=== PATIENT | female | born 1995 | race Caucasian/White ===

== ENCOUNTER 2023-07-16 09:15 | Emergency (ER) | payer OTHER, SELFPAY ==
[2023-07-16 09:43] VITALS: BP 132/71; PULSE 85; RESP 16; TEMP 36.6; O2SAT 100
--- NOTE | 2023-07-16 09:50 | ED.GENADULT ---
HPI - General Adult General Chief complaint: Upper Respiratory Infection Stated complaint: congestion,swelling on rt side of face Time Seen by Provider: 07/16/23 09:50 Source: patient, RN notes reviewed and old records reviewed Mode of arrival: ambulatory Limitations: no limitations History of Present Illness HPI narrative: 28-year-old female presents to the [facility] with complaints of congestion and swelling to the area in front of her ear, swollen, painful. Has had congestion for the last 3-4 days. Patient is 9 weeks . States that she has been using Flonase with approval from her OB. States that she has been using Claritin daily. area is tender palpation. Movable, mildly swollen. No otitis media noted on exam. Tender area since waking up this morning. Onset (ago): day(s) (1) Related Data Home Medications Medication Instructions Recorded Confirmed No Home Medications 07/16/23 07/16/23 Allergies Allergy/AdvReac Type Severity Reaction Status Date / Time cefaclor AdvReac Intermediate Gastrointestinal Verified 07/16/23 10:05 Upset sulfamethoxazole AdvReac Mild Rash Verified 07/16/23 10:06 [From Bactrim] trimethoprim [From Bactrim] AdvReac Mild Rash Verified 07/16/23 10:06 Review of Systems Review of Systems: All systems reviewed & are unremarkable except as noted in HPI and below Constitutional: Constitutional: Reports no additional constitutional complaints Eyes: Eyes: Reports no additional eye complaints ENT: Reports as per HPI Cardiovascular: Cardiovascular: Reports no additional cardiovascular complaints, Denies chest pain and Denies dyspnea Respiratory: Respiratory: Reports no additional respiratory complaints, Denies chest congestion, Denies cough and Denies dyspnea Gastrointestinal: Gastrointestinal: Reports no additional gastrointestinal complaints, Denies abdominal pain, Denies nausea and Denies vomiting Musculoskeletal: Musculoskeletal: Reports no additional musculoskeletal complaints Integumentary/Breasts: Skin/Breast: Reports system reviewed and no additional complaints, except as docu Neurologic: Reports system reviewed and no additional complaints, except as documented Psychiatric: Psychiatric: Reports no additional psychiatric complaints Allergic/Immunologic: Allergic/Immunologic: Reports no additional allergic/immunologic complaints PMFSH Comments At the time of my signature, I reviewed and agree with the nursing past medical, surgical, social, and family history. There is no relevant family history pertinent to the patient complaint. Exam Const: General: cooperative, healthy appearing, comfortable, no acute distress, well developed, alert and well nourished Nutritional Appearance: well nourished Orientation/consciousness: patient oriented x3 Limitations: no limitations HENMT: Head: normal to inspection Ears: hearing grossly normal bilaterally, external ears normal, TM's normal bilaterally, EAC's normal, mastoids normal and periauricular adenopathy on the right (Tender to palpation, less than 1 cm, no erythema, ecchymosis.) Outer ear/TM images: 1. Less than 1 cm mild swelling without ecchymosis, erythema. No surrounding erythema, swelling. Area is tender to palpation Face/Nose/Sinus: Normal external nose present, Normal nares present, Normal nasal mucous membranes and turbinates present, normal facial exam and face symmetric Face and sinus: normal facial exam and face symmetric Mouth: Yes Normal oral and palatal mucosa present, Yes lip normal and Yes moist mucous membranes Throat: posterior oropharynx normal, tonsils normal and uvula midline Eyes: General: appearance normal, both eyes and all related structures Alignment and Position: alignment normal Periorbital: periorbital findings normal Pupils: Equal, round and reactive pupils present EOM: EOMs intact bilaterally Neck: Neck: normal visual inspection, full ROM, no lymphadenopathy and no meningeal signs
== END 2023-07-16 10:10 | disposition home or self-care (01) ==
PROVIDERS: Emergency Provider Nurse Practitioner
DX: R59.9 Enlarged lymph nodes, unspecified (principal); Z86.16 Personal history of COVID-19
CPT/HCPCS: 99211; G0463